=== PATIENT | female | born 1970 | race Caucasian/White ===

== ENCOUNTER → 2016-08-05 | Outpatient (CLI) | payer OTHER ==
[~2016-08-05] MED LIST: [UNRECOGNIZED DRUG - OTHER] OR
--- NOTE | 2016-08-07 16:14 | RADIOLOGY REPORT PS360 ---
, 1. ULTRASOUND RIGHT BREAST COMPLETE- including axillary survey 2. US CYST ASPIRATION: BREAST CYST NEEDLE ASPIRATION ULTRASOUND GUIDANCE ORDERING PHYSICIAN : Alfredo Moulton MD PATIENT AGE: 46 years GENDER: Female INDICATION: Fibrocystic breast disease Currently Painful MASS ON RT BREAST previous cyst previous biopsies COMPARISON: Previous mammogram 2014 left breast and left breast ultrasound from 2014 --- ULTRASOUND LEFT BREAST--including axillary survey. FINDINGS Ultrasound survey entire breast including axillary survey performed: 2:00 The significant finding is a large 3.2 cm debris-filled cyst at 2:00 right breast near nipple. There appears be some mild inflammation and reactive changes about this area and with this is quite tender and firm 4:00. Small less than 9 mm debris-filled cyst at 4:00 central breast.. 10:00 elongated septated benign appearing cyst measuring up to nearly 3.5 cm x 0.9 cm AP. Axillary survey. Nonspecific Benign-appearing lymph nodes identified. IMPRESSION------ Multiple Breast cyst. The largest measuring nearly 3.2 cm at 2:00 right breast. This tender large cyst with subtle edema about its margin which may reflect some adjacent inflammation.. ... ULTRASOUND GUIDED CYST ASPIRATION... Following sterile preparation and local skin anesthesia as well as deep anesthetic a 18-gauge hypodermic needle was utilized injected towards this large cyst at the entire cyst was evacuated all fluid removed. Up to nearly 15 cc of fluid were obtained and sent for laboratory. Turbid Greenish-brownish fluid. 10 cc Air was then injected into the cyst. Some so it does not debris-filled reported that this may help sclerose the lining of a cyst and such that it tends less to refill. The patient tolerated the procedure well minimal discomfort. ------IMPRESSION Successful complete aspiration of this large cyst. Nearly 15 cc removed -Fluid sent for cytology Note: Because of her breast pain no mammogram was performed at this setting. I would suggest a follow-up mammogram be performed over the next few weeks after her tenderness resolve. Her last mammogram was in 2014 thus she is due for bilateral mammogram ========= CYTOPATHOLOGY negative for malignancy. Findings compatible with benign cyst
== END ==
LOC: RAD 16:17
DX: Z12.31 Encounter for screening mammogram for malignant neoplasm of breast (principal); N63 Unspecified lump in breast